=== PATIENT | female | born 1955 | race Caucasian/White ===

== ENCOUNTER → 2017-12-15 08:49 | Outpatient (CLI) | payer OTHER ==
[~2017-12-15 08:49] MED LIST: CENTRUM SILVER1 TA1 PO; KLONOPIN1 MG PO; NORCO 7.5/325 T1 TA1 PO; NP THYROID90 MG PO; PERCOCET 5-3251 TAB PO; TALTZ IJ; VITAMIN D250000 UNIT PO; garlic PO
[2018-01-04 08:49] VITALS: BMI 31.5
== END | disposition home or self-care (01) ==
LOC: D.MRI 08:49
DX: M25.561 Pain in right knee (principal); M25.562 Pain in left knee

== ENCOUNTER 2018-01-04 07:55 | Day surgery (SDC) | payer OTHER ==
[2018-01-03 09:13] LABS: HEMOGLOBIN 14.1 g/dL (12-16); MCH 30.1 pg (26.0-34.0); MCHC 33.6 g/dL (31.0-37.0); MCV 89.6 fL (80.0-100.0); RBC 4.69 10x6/uL (4.00-5.40); RDW 13.2 % (11.5-14.5); WBC 6.7 10x3/uL (4.8-10.8)
[~2018-01-04] VITALS: Ht 167.6 cm; Wt 88.5 kg
--- NOTE | ~2018-01-04 | OP ---
PATIENT NAME: ARAMIS PRASAD MEDICAL RECORD: [id number] :57 LOCATION:[facility]OPS ADMISSION DATE: SURGEON: AUGUST FIORE MD DATE OF OPERATION: 01/04/2018 PREOPERATIVE DIAGNOSIS: Medial meniscus tear of the right knee. POSTOPERATIVE DIAGNOSIS: Medial meniscus tear of the right knee. PROCEDURE: Arthroscopic partial medial meniscectomy of the right knee. SURGEON: August Fiore MD ANESTHESIA: General. INTRAOPERATIVE COMPLICATIONS: None. SUMMARY OF PATHOLOGIC FINDINGS: The patient definitely had a complex tear of the posterior horn of the medial meniscus. OPERATIVE SUMMARY IN DETAIL: After obtaining the appropriate preoperative orthopedic surgery consent as well as anesthetic consultation, evaluation, and clearance, the patient was brought to the operating room and placed on the operating room table in supine position. After general laryngeal mask airway was administered, tourniquet was placed in the proximal aspect of the right lower extremity. Right lower extremity was prepped and draped in routine sterile fashion. Leg was elevated, exsanguinated, and tourniquet was inflated to 350 mmHg. Routine inferolateral portal was established followed by superomedial portal and inferomedial portal. Diagnostic arthroscopy did reveal the patient to have above findings. Combination of arthroscopic resector as well as meniscotome was utilized to debride the posterior horn of the medial meniscus back to stable meniscal elements. Having completed this, the arthroscopy portals were closed in routine interrupted fashion using 4-0 Prolene. The knee was insufflated with 30 cc of 0.25% Marcaine and 80 mg of Depo-Medrol. Sterile dressings were applied. Tourniquet was deflated. The patient was awakened and taken to recovery in stable condition. All final needle and sponge counts were correct. TRANSINT:[id number] Voice Confirmation ID: [id number] DOCUMENT ID: [id number] AUGUST FIORE MD at 1458 CC: [id number] DICTATION DATE: 01/04/18 1343 BOX WORKER: 01/04/18 1430 [facility] [address] [id number]
[~2018-01-04 07:55] MED LIST changes: -PERCOCET 5-3251 TAB PO
[2018-01-04 08:49] VITALS: BP 113/78; Ht 167.6 cm; Wt 88.5 kg
[2018-01-04] MEDS ORDERED: PERCOCET 5-3251 TAB PO (13:39)
== END 2018-01-04 15:11 | disposition home or self-care (01) ==
LOC: D.OPS 07:55 → D.PAN 10:00 → D.OPS 11:15 → D.PAN 18:30
PROVIDERS: Anesthesiology
DX: S83.231A Complex tear of medial meniscus, current injury, right knee, initial encounter (principal); Z01.812 Encounter for preprocedural laboratory examination